=== PATIENT | female | born 1990 | race Caucasian/White ===

== ENCOUNTER 2016-12-22 18:02 | Emergency (ER) | payer BC, MEDICAID, OTHER ==
[2016-12-22 18:27] VITALS: BP 133/93
--- NOTE | 2016-12-22 18:46 | UC ---
Dental HPI - HPI Summary HPI Summary: The patient comes in today for: 1. Bottom right molar and the top right molar. Onset: 5 days ago. Palliative/provocative: She has not tried chewing food. She avoids cold liquids. Quality: Ache Region/radiation: Right upper and lower back tooth pain. Severity: 9/10 Time: Constant. Associated symptoms: Fever: None. Dentist: She does not have one. Her last dental visit 2-3 years ago. * - History of Current Complaint Chief Complaint: UCDentalProblem Stated Complaint: DENTAL PAIN Time Seen by Provider: 12/22/16 18:19 Hx Obtained From: Patient Hx Last Menstrual Period: Currently menstruating ?: No - Allergies/Home Medications Allergies/Adverse Reactions: Allergies Allergy/AdvReac Type Severity Reaction Status Date / Time No Known Allergies Allergy Verified 12/30/14 17:14 Home Medications: Home Medications Control Patch 12/22/16 [History] PMH/Surg Hx/FS Hx/Imm Hx Previously Healthy: No - Family planning/BCP Endocrine History Of: Denies: Diabetes, Thyroid Disease, Hyperthyroidism, Hypothyroidism, Dyslipidemia Cardiovascular History Of: Denies: Cardiac Disorders, Hypertension, Pacemaker/ICD, Myocardial Infarction , Congestive Heart Failure, Atrial Fibrillation, Deep Vein Thrombosis, Bleeding Disorders Respiratory History Of: Denies: COPD, Asthma, Bronchitis, Pneumonia, Pulmonary Embolism GI/ History Of: Denies: Gastroesophageal Reflux, Ulcer, Gastrointestinal Bleed, Gall Bladder Disease, Kidney Stones, Diverticulitis, Renal Disease, Urosepsis Neurological History Of: Denies: TIA, CVA, Dementia, Seizures, Migraine Psychological History Of: Denies: Anxiety, Depression, Bipolar Disorder, Schizophrenia, Post Traumatic Stress Disorder Cancer History Of: Denies: Lung Cancer, Colorectal Cancer, Breast Cancer, Prostate Cancer, Cervical Cancer Other History Of: Negative For: HIV, Hepatitis B, Hepatitis C, Anticoagulant Therapy - Surgical History Surgical History: None - Family History Known Family History: Negative: Cardiac Disease, Hypertension - Social History Occupation: Unemployed Alcohol Use: None Substance Use Type: None Smoking Status (MU): Light Every Day Tobacco Smoker Type: Cigarettes Amount Used/How Often: 3 cigs per day Have You Smoked in the Last Year: No - Immunization History Most Recent Influenza Vaccination: refused Most Recent Tetanus Shot: 06/01/15 Most Recent Pneumonia Vaccination: not indicated Review of Systems Constitutional: Negative Skin: Negative Eyes: Negative ENT: Negative Respiratory: Negative Cardiovascular: Negative Gastrointestinal: Negative Genitourinary: Negative All Other Systems Reviewed And Are Negative: Yes Physical Exam Triage Information Reviewed: Yes Appearance: Well-Appearing, Well-Nourished, Other: - At times she is crying, and at other times she is smiling and not tearful. Vital Signs: Initial Vital Signs Temp 96.9 F 12/22/16 18:18 Pulse 88 12/22/16 18:18 Resp 18 12/22/16 18:18 BP 133/93 12/22/16 18:18 Pulse Ox 99 12/22/16 18:18 Vital Signs Reviewed: Yes Eyes: Positive: Conjunctiva Clear. Negative: Discharge ENT: Positive: Hearing grossly normal. Negative: Pharyngeal erythema, Nasal congestion, Nasal drainage, TM bulging, TM dull, TM red, Tonsillar swelling, Tonsillar exudate Dental: Positive: Other: - No obvious dental fracture or cavity seen. She has tenderness of #3 and #30.. Negative: Gross Decay/Caries @, Dental Fracture @ Neck: Positive: Supple, Nontender, No Lymphadenopathy. Negative: Nuchal Rigidity Respiratory: Positive: Lungs clear, No respiratory distress, No accessory muscle use. Negative: Crackles, Wheezing Cardiovascular: Positive: RRR, No Murmur Abdomen Description: Positive: Nontender, No Organomegaly, Soft. Negative: Distended, Guarding Musculoskeletal: Positive: Strength Intact, ROM Intact, No Edema Neurological: Positive: Alert, Muscle Tone Normal Psychological: Positive: Age Appropriate Behavior, Consolable Skin: Negative: rashes, breakdown Dental Complaint Course/Dx - Differential Dx/Diagnosis Differential Diagnosis/Dx: Dental Abscess, Dental Caries Provider Diagnoses: Pulpitis #3 and #30. Discharge - Discharge Plan Condition: Stable Disposition: HOME Patient Education Materials: Dental Caries (ED), Dental Abscess (ED), Toothache (ED) Additional Instructions: Please see a dentist as soon as you can. If you get worse, please be re-seen by your primary care provider or us or the ER. Our treatment is only a temporary fix to your tooth infection. The definitive care is through a dentist.
[2016-12-22] MEDS ORDERED: Naproxen TAB* 250 MG PO ONE (18:53)
[2016-12-22] MEDS ORDERED: Penicillin VK TAB* 250 MG PO ONE (18:54)
== END 2016-12-22 19:08 | disposition home or self-care (01) ==
LOC: UCEAST 18:02
DX: K04.01 Reversible pulpitis (principal); F17.210 Nicotine dependence, cigarettes, uncomplicated
CPT/HCPCS: 99213; A9270-GY; G0463

== ENCOUNTER 2017-05-22 10:58 | Emergency (ER) | payer OTHER ==
[2017-05-22 11:53] VITALS: BP 113/75
--- NOTE | 2017-05-22 12:03 | UC ---
Complaint Female HPI - HPI Summary HPI Summary: Yesterday developed constant urgency, felt like thinks were "not right." Today lots of pain with urination and increasing frequency. Denies fever, vomiting, or flank pain. Is having low back pain.Had has UTIs in the past, none recently. - History Of Current Complaint Chief Complaint: UCGU Stated Complaint: POSS UTI Time Seen by Provider: 05/22/17 11:54 Hx Obtained From: Patient Hx Last Menstrual Period: 05/04/17 ?: No Onset/Duration: Gradual Onset, Lasting Hours Timing: Constant Severity Initially: Mild Severity Currently: Moderate Character: Burning Aggravating Factor(s): Urination Associated Signs And Symptoms: Negative: Vaginal Bleeding/Discharge, Vaginal Discharge, Nausea, Vomiting(# Of Episodes =) - Allergies/Home Medications Allergies/Adverse Reactions: Allergies Allergy/AdvReac Type Severity Reaction Status Date / Time No Known Allergies Allergy Verified 12/30/14 17:14 Home Medications: Home Medications Citalopram TAB* [CeleXA TAB*] 10 mg PO DAILY 05/22/17 [History Confirmed ] PMH/Surg Hx/FS Hx/Imm Hx Previously Healthy: Yes Other History Of: Negative For: HIV, Hepatitis B, Hepatitis C, Anticoagulant Therapy - Surgical History Surgical History: None - Family History Known Family History: Negative: Cardiac Disease, Hypertension - Social History Alcohol Use: None Substance Use Type: None Smoking Status (MU): Light Every Day Tobacco Smoker Type: Cigarettes Amount Used/How Often: 3 cigs per day Have You Smoked in the Last Year: No - Immunization History Most Recent Influenza Vaccination: refused Most Recent Tetanus Shot: 06/01/15 Most Recent Pneumonia Vaccination: not indicated Review of Systems Constitutional: Negative Skin: Negative Eyes: Negative ENT: Negative Respiratory: Negative Cardiovascular: Negative Gastrointestinal: Negative Genitourinary: Dysuria, Frequency, Urgency Motor: Negative Neurovascular: Negative Musculoskeletal: Negative Neurological: Negative Psychological: Negative All Other Systems Reviewed And Are Negative: Yes Physical Exam Triage Information Reviewed: Yes Appearance: Well-Appearing, No Pain Distress, Well-Nourished Vital Signs: Initial Vital Signs Temp 98 F 05/22/17 11:50 Pulse 67 05/22/17 11:50 Resp 16 05/22/17 11:50 BP 113/75 05/22/17 11:50 Pulse Ox 99 05/22/17 11:50 Vital Signs Reviewed: Yes Eye Exam: Normal Eyes: Positive: Conjunctiva Clear ENT Exam: Normal ENT: Positive: Normal ENT inspection, Hearing grossly normal, Pharynx normal, TMs normal. Negative: Tonsillar swelling, Tonsillar exudate Dental Exam: Normal Neck exam: Normal Neck: Positive: Supple, Nontender, No Lymphadenopathy Respiratory Exam: Normal Respiratory: Positive: Chest non-tender, Lungs clear, Normal breath sounds, No respiratory distress, No accessory muscle use Cardiovascular Exam: Normal Cardiovascular: Positive: RRR, No Murmur Abdomen Description: Positive: Nontender. Negative: CVA Tenderness (R), CVA Tenderness (L) Musculoskeletal Exam: Normal Neurological Exam: Normal Psychological Exam: Normal Skin Exam: Normal Complaint Female Dx - Differential Dx/Diagnosis Provider Diagnoses: UTI Discharge - Discharge Plan Condition: Stable Disposition: HOME
== END 2017-05-22 12:12 | disposition home or self-care (01) ==
LOC: UCEAST 10:58
DX: N39.0 Urinary tract infection, site not specified (principal); F17.210 Nicotine dependence, cigarettes, uncomplicated
CPT/HCPCS: 81003; 87077; 87086; 87186; 99211; G0463

== ENCOUNTER 2018-10-08 17:43 | Inpatient (IN) | payer OTHER ==
[2018-10-08] MEDS ORDERED: fentaNYL* 50 MCG/ML 2 ML VIAL (100 MCG VIAL) ONE (18:19)
[2018-10-08] MEDS ORDERED: OBEPIDURAL* 0 ML EPIDURAL ONE (18:21)
[2018-10-08] MEDS ORDERED: Phenylephrine IV* 40 MCG/ML 10 ML SYRINGE IV PUSH PRN ×2 (18:24)
[2018-10-08] MEDS ORDERED: Sodium Citrate/Citric Acid* 15 ML UDC PO PRN (18:24)
[2018-10-08] MEDS ORDERED: Famotidine TAB* 20 MG PO PRN (18:24)
--- NOTE | 2018-10-08 18:24 | HP ---
General Information - Reason for Visit labor, contractions every 3-5 min - General Information Maternal Age: 28 Grav: 3 Para: 2 SAB: 0 IEA: 0 Estimated Due Date: 10/26/18 Determined By: Early Ultrasound Maternal Blood Type and Rh: A Positive - Results this Serology/RPR Result: Non-Reactive Rubella Result: Immune HBsAg Result: Negative HIV Result: Negative GBS Culture Result: Negative Exam Allergies/Adverse Reactions: Allergies No Known Allergies Allergy (Verified 10/06/18 19:01) - Measurements Pre- Weight: 130 lb
--- NOTE | 2018-10-08 18:33 | HP ---
General Information - Reason for Visit labor, contractions every 3-5 minutes - General Information Maternal Age: 28 Grav: 3 Para: 2 SAB: 0 IEA: 0 Estimated Due Date: 10/26/18 Determined By: Early Ultrasound Gestational Age in Weeks/Days: 37 w 3 d Maternal Blood Type and Rh: A Positive - Results this Serology/RPR Result: Non-Reactive Rubella Result: Immune HBsAg Result: Negative HIV Result: Negative GBS Culture Result: Negative Past Medical History Delivery History: Hx Uncomplicated Vaginal Delivery Past Medical History Comment: hx opioid abuse, currently on Subutex Depression/anxiety--stopped Celexa 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 Past Surgical History Comment: age 10--reset fx L wrist - Antepartal Records Antepartal Records: Reviewed, Complicated by: - subutex use, cigarette smoker Review of Systems Constitutional: Uncomfortable CV Complaint: No Respiratory: Shortness of Breath: No Gastrointestinal: No Nausea/Vomiting, Soft Stool Genitourinary: No Leaking Fluid Musculoskeletal: Contractions Neurological: Headache Movement: Normal Exam Allergies/Adverse Reactions: Allergies No Known Allergies Allergy (Verified 10/06/18 19:01) - Measurements Height: 5 ft 2 in Weight: 158 lb Body Mass Index (BMI): 28.9 Pre- Weight: 130 lb - Exam Breast: - - soft, no masses Extremities: No Edema Heart: Normal Rhythm/Heart Sounds HEENT: No Significant Findings Lungs: Clear Bilaterally Reflexes: - - not done Thyroid: No Thyromegaly Targeted Exam Findings Estimated Weight: 6 lbs Cervical Exam: 7cm Effacement: 100% Station: -1 Presenting Part: Vertex Membrane Status: Intact EFM Findings - External Monitor Findings Baseline Heart Rate: 145 External Monitor Findings: No Pattern of Variable or Late Decelerations, Variability Moderate, Baseline Stable Contractions: Strong, 45-90 Seconds Contraction Frequency: every 3 min Assessment/Plan - Assessment at 37 wk 3 days in active labor Wants epidural - Obstetrical Risk Factors Obstetrical Risk Factors: Substance Abuse, Tobacco Use, Psychosocial Issues - Plan Plan: Admit - Anticipate Vaginal Delivery - Date/Time of Admission Date of Admission: 10/08/18 Time of Admission: 18:05
[2018-10-08 18:35] LABS: ABS Basophils 0.1 10^3/ul (0-0.2); ABS Eosinophils 0 10^3/ul (0-0.6); ABS Lymphocytes 1.7 10^3/ul (1.0-4.8); ABS Monocytes 0.7 10^3/ul (0-0.8); ABS Neutrophils 8.4 10^3/ul (1.5-7.7); ABS Nucleated RBC 0 10^3/ul; Eosinophil % 0.4 %; Hematocrit 34 % (35-47); Hemoglobin 11.5 g/dl (12.0-16.0); Lymphocyte % 15.8 %; Mean Corpuscular HGB Conc 34 g/dl (31-36); Mean Corpuscular Hemoglobin 32 pg (27-31); Mean Corpuscular Volume 93 fL (80-97); Mean Platelet Volume 10.1 fL (7.4-10.4); Nucleated Red Blood Cells % 0; Platelet Count 134 10^3/ul (150-450); Red Blood Count 3.66 10^6/ul (4.00-5.40); Red Cell Distribution Width 13 % (10.5-15)
[2018-10-08] MEDS ORDERED: Ropivacaine 0.2% EPIDURAL* 200 MG/100 ML BAG EPIDURAL SCH (19:00)
[2018-10-08] MEDS ORDERED: Oxytocin in LR* 20 UNITS/1,000 ML BAG IVPB ONE (19:58)
[2018-10-08] MEDS ORDERED: Acetaminophen TAB* 325 MG PO PRN (20:16)
[2018-10-08] MEDS ORDERED: Glycerin ADULT SUPP PR PRN (20:16)
[2018-10-08] MEDS ORDERED: Witch Hazel PAD* JAR TOPICAL PRN (20:16)
[2018-10-08] MEDS ORDERED: Dibucaine 1% 28.35 GM TUBE PR PRN (20:16)
--- NOTE | 2018-10-08 20:33 | PROCNOTE ---
[facility] OB: Delivery Note - Delivery A Date of : 10/08/18 Time of : 19:54 Caroline Sex: Female Score 1 Minute: 9 Score 5 Minutes: 9 Gestational Age in Weeks and Days at Delivery: 37 Weeks and 3 Days Delivery Method: Spontaneous Vaginal Labor: Spontaneous Did Patient attempt ?: N/A, No Previous Amniotic Fluid: Clear Estimated Blood Loss: 100 Anesthesia/Analgesia: CEI for Labor Anesthesia Comment: Dr. Bedoya Delivered By: Liana Dasilva - Nursery Level of Nursery: Regular/Bedside - Perineum Perineal Injury: None/Intact Perineal Repair: None - Additional Delivery Notes Additional Delivery Notes: SVB LFC, OA, over intact perineum after 14 min second stage. pink with stimulation, suctioning. Placenta Yin. Fundus firm. IV with pitocin running. EBL 100cc. Total LOL 5'0"
[2018-10-08] MEDS ORDERED: Ibuprofen TAB* 600 MG ONE (20:47)
[2018-10-08] MEDS ORDERED: Oxytocin in LR* 20 UNITS/1,000 ML BAG IVPB SCH (21:00)
[2018-10-08] MEDS: Ibuprofen TAB* 600 MG PO PRN (21:53)
[2018-10-08] MEDS: Docusate CAP* 100 MG PO SCH (21:59)
[2018-10-08] MEDS: Buprenorphine TAB* 8 MG PO SCH (21:59)
[2018-10-09] MEDS: Ibuprofen TAB* 600 MG PO PRN ×3 (06:31→20:39)
[2018-10-09 06:35] LABS: ABS Basophils 0 10^3/ul (0-0.2); ABS Eosinophils 0.1 10^3/ul (0-0.6); ABS Monocytes 0.7 10^3/ul (0-0.8); ABS Neutrophils 8.5 10^3/ul (1.5-7.7); ABS Nucleated RBC 0 10^3/ul; Eosinophil % 0.6 %; Hematocrit 31 % (35-47); Hemoglobin 10.5 g/dl (12.0-16.0); Lymphocyte % 17.4 %; Mean Corpuscular HGB Conc 33 g/dl (31-36); Mean Corpuscular Hemoglobin 31 pg (27-31); Mean Corpuscular Volume 93 fL (80-97); Mean Platelet Volume 9.6 fL (7.4-10.4); Nucleated Red Blood Cells % 0; Platelet Count 120 10^3/ul (150-450); Red Blood Count 3.36 10^6/ul (4.00-5.40); Red Cell Distribution Width 13 % (10.5-15); White Blood Count 11.3 10^3/ul (3.5-10.8)
[2018-10-09] MEDS ORDERED: Ferrous Gluconate TAB* 324 MG TAB PO SCH (09:00)
[2018-10-09] MEDS: Docusate CAP* 100 MG PO SCH ×3 (09:07→20:36)
[2018-10-09] MEDS: Buprenorphine TAB* 8 MG PO SCH ×3 (09:07→20:36)
[2018-10-10] MEDS: Ibuprofen TAB* 600 MG PO PRN ×3 (03:56→16:04)
[2018-10-10 08:09] VITALS: BP 122/77
[2018-10-10] MEDS: Docusate CAP* 100 MG PO SCH ×2 (08:31→14:21)
[2018-10-10] MEDS: Buprenorphine TAB* 8 MG PO SCH ×2 (10:01→15:40)
== END 2018-10-10 18:05 | disposition home or self-care (01) | DRG 560 ==
LOC: MCHOBOUT 17:43 → MCHOB 18:00
PROVIDERS: ADMIT Midwife; ATTEND Midwife
PROC: 10E0XZZ Delivery of Products of Conception, External Approach (ICD-10-PCS; principal; 2018-10-08)
PROC: 10907ZC Drainage of Amniotic Fluid, Therapeutic from Products of Conception, Via Natural or Artificial Opening (ICD-10-PCS; 2018-10-08)
PROC: 4A1HXCZ Monitoring of Products of Conception, Cardiac Rate, External Approach (ICD-10-PCS; 2018-10-08)
DX: O99.334 Smoking (tobacco) complicating childbirth (principal); Z37.0 Single live birth; F17.210 Nicotine dependence, cigarettes, uncomplicated; O99.324 Drug use complicating childbirth; F11.10 Opioid abuse, uncomplicated; Z3A.37 37 weeks gestation of pregnancy
CPT/HCPCS: 36415; 85025; 86850; 86900; 86901; A9270-GY; J2795; J3010

== ENCOUNTER → 2018-12-17 05:32 | Day surgery (SDC) | payer OTHER ==
[~2018-12-17 05:32] MED LIST: Acetaminophen TAB* 325 MG ONE; Acetaminophen TAB* 325 MG PO PRN; Buffered Lidocaine 1% SYRIN* 1 ML/SYRINGE INTRADERM ONE; Dexamethasone IV* 4 MG/ML 1 ML (4 MG) ONE; DiMENhydriNATE IV* 50 MG/ML VIAL IV PUSH PRN; HYDROmorphone INJ1* 1 MG/ML SYRINGE IV PRN; Ketorolac INJ* 30 MG/ML 1 ML VIAL ONE; Lactated Ringers 1000 ML Bag* 1,000 ML IV SCH; Lidocaine 2% PF * 5 ML VIAL ONE; Metoclopramide IV* 5 MG/ML 2 ML VIAL ONE; Midazolam* 1 MG/ML 2 ML VIAL (2 MG) ONE; Naloxone* 0.4 MG/ML 1 ML VIAL IV PRN; Ondansetron INJ* 2 MG/ML VIAL ONE; Propofol* 10 MG/ML 20 ML BTL ONE; Rocuronium* 10 MG/ML VIAL ONE; Succinylcholine* 20 MG/ML 10 ML VIAL ONE; Sugammadex * 200 MG/2 ML VIAL IV PUSH ONE; fentaNYL* 50 MCG/ML 5 ML VIAL (250 MCG VIAL) ONE; oxyCODONE TAB* 5 MG TAB PO PRN
--- NOTE | 2018-12-17 09:13 | OP ---
DATE OF OPERATION: 12/17/18 - [facility] DATE OF : 89 SURGEON: Dr. Garcia. ANESTHESIA: General endotracheal tube. PRE-OP DIAGNOSIS: Desires permanent sterilization. POST-OP DIAGNOSIS: Desires permanent sterilization. OPERATIVE PROCEDURE: Laparoscopic bilateral tubal ligation. ESTIMATED BLOOD LOSS: Minimal. SPECIMEN: None. FINDINGS: On laparoscopy, anterior bladder flap appeared normal. Both tubes, ovaries, and uterus all appeared normal. The liver surface was smooth. DESCRIPTION OF PROCEDURE: The patient was identified, procedure identified as a laparoscopic bilateral tubal ligation. The patient was taken to the operating room, prepped and draped in the usual fashion in the dorsal lithotomy position under general anesthesia. A small infraumbilical incision was made and a Veress needle was inserted through this. The abdomen was insufflated to 15 mmHg. The Veress needle was removed and the trocar was inserted. Trocar was removed and the sheath and laparoscope were inserted. The above findings were noted. The second trocar was inserted 2 cm above the pubic symphysis in the midline under direct visualization. Kleppinger bipolar cautery was inserted and the right fallopian tube was grasped in the midportion, followed to its fimbriated ends, and fulgurated x4. The same procedure was carried out on the left after following it out to its fimbriated ends. Good hemostasis was verified. All instruments removed from the abdomen. The abdomen was deflated of CO2. Sponge and sponge stick were removed from the vagina and the skin was closed with skin glue. [id number]/[facility] #: [id number] E.J. NOBLE HOSPITALBrenda
[2018-12-17 09:41] VITALS: BP 106/62
== END | disposition home or self-care (01) ==
LOC: OR 05:32
PROVIDERS: ATTEND Obstetrics & Gynecology
DX: Z30.2 Encounter for sterilization (principal); R01.1 Cardiac murmur, unspecified; Z72.0 Tobacco use; F41.8 Other specified anxiety disorders
CPT/HCPCS: 81025; A9270-GY; J0330; J1100; J1885; J2250; J2405; J2704; J2765; J3010

== ENCOUNTER 2019-01-29 18:43 | Emergency (ER) | payer OTHER ==
[2019-01-29 19:14] VITALS: BP 123/77
--- NOTE | 2019-01-29 19:50 | UC ---
Abdominal Pain Female HPI - HPI Summary HPI Summary: Patient presents to urgent care reporting 34 hours of urinary frequency, odor, and dysuria. Patient denies vaginal discharge. Patient denies fevers or chills. No back pain. Mild lower abdominal pain. no bacl pain. no nausea.. Patient is 3 months . Patient has not gotten her first menses but does have a tubal ligation. Patient denies any vaginal itching, odor, discharge. Patient took Pyridium that she had from a previous UTI that helped. Patient is no longer breast-feeding and she stopped approximately 3 weeks ago. Patient's medications reviewed this visit. - History of Current Complaint Chief Complaint: UCGU Stated Complaint: ABDOMINAL PAIN, AND FREQUENT URINATION Time Seen by Provider: 01/29/19 19:18 Hx Obtained From: Patient Hx Last Menstrual Period: before baby; tubes tied Pain Intensity: 5 Allergies/Adverse Reactions: Allergies Allergy/AdvReac Type Severity Reaction Status Date / Time No Known Allergies Allergy Verified 12/07/18 14:06 PMH/Surg Hx/FS Hx/Imm Hx Previously Healthy: Yes Psychological History: Other - substance use disorder Other History Of: Negative For: HIV, Hepatitis B, Hepatitis C, Anticoagulant Therapy - Surgical History Surgical History: Yes Surgery Procedure, Year, and Place: left wrist reset. tubes tied 2017 - Family History Known Family History: Positive: Non-Contributory Negative: Cardiac Disease, Hypertension - Social History Occupation: Unemployed Lives: With Family Alcohol Use: None Substance Use Type: None Smoking Status (MU): Light Every Day Tobacco Smoker Type: Cigarettes Amount Used/How Often: 1/2pack per day Have You Smoked in the Last Year: No Household Exposure Type: Cigarettes - Immunization History Most Recent Influenza Vaccination: unknown Most Recent Tetanus Shot: 06/01/15 Most Recent Pneumonia Vaccination: not indicated Review of Systems All Other Systems Reviewed And Are Negative: Yes Constitutional: Positive: Negative Genitourinary: Positive: Dysuria, Frequency, Urgency. Negative: Vaginal/Penile Burning, Vaginal/Penile Itching, Vaginal/Penile Discharge Is Patient Immunocompromised?: No Physical Exam - Summary Physical Exam Summary: Vital Signs Reviewed: Yes A+Ox3, no distress Eyes: Conjunctiva Clear, BRENT. EOM intact and full ENT: Hearing grossly normal TM x 2 clear, mmoist, uvula midline, no exudate, no erythema Neck: Positive: Supple Respiratory: Positive: No respiratory distress, No accessory muscle use + CTA throughout no w/r Cardiovascular: RRR nl s1, s2 no m/r CBT <2 sec abd soft + BS nd, mild suprapubic discomfort no guarding, no distension, no CVA Musculoskeletal Exam: HERNANDEZ x 4 without difficulty Strength Intact, ROM Intact Neurological: Positive: Alert, + sensation throughout Psychological: Positive: Normal Response To Family Skin: Positive: no rash, no ecchymosis Triage Information Reviewed: Yes Vital Signs: Initial Vital Signs Temp 97.8 F 01/29/19 19:07 Pulse 74 01/29/19 19:07 Resp 16 01/29/19 19:07 BP 123/77 01/29/19 19:07 Pulse Ox 99 01/29/19 19:07 Abd Pain Female Course/Dx - Course Course Of Treatment: Patient presents to urgent care with 24 hours of urinary frequency, urgency, and odor. Patient with a history of UTI and states feels similar. Patient states she is concerned she has a UTI. Patient has taken Pyridium. Patient will take any other analgesia. No fevers or chills. No vaginal discharge or itching. Patient's urine is pain positive but she took Pyridium. We'll culture. We'll start on cephalexin and Pyridium. Hydrate. Strict return precautions. Patient comfortable in agreement - Differential Dx/Diagnosis Provider Diagnosis: UTI (urinary tract infection) Discharge - Sign-Out/Discharge Documenting (check all that apply): Patient Departure All imaging exams completed and their final reports reviewed: No Studies - Discharge Plan Condition: Stable Disposition: HOME Prescriptions: Cephalexin CAP* [Keflex 500 CAP*] 500 mg PO BID #14 cap Phenazopyridine TAB* [Pyridium 100 mg TAB*] 100 mg PO TID PRN #9 tab PRN Reason: burning with urination Patient Education Materials: Urinary Tract Infection in Women (ED) Referrals: Aicha Macias NP [Primary Care Provider] - Additional Instructions: - stay well hydrated - drink plenty of non-alcoholic, non caffinated beverages - your urine will be further tested - if you require any changes to your treatment, we will contact you - this usually take 2 days - Contact your primary doctor to arrange a follow-up appointment next week. Contact your doctor or return with questions or concerns - Take your antibiotics exactly as prescribed until gone - Take pyridium as prescribed for discomfort. This will make your urine blaze orange - this is normal - Okay to take Tylenol every 6 hours for pain. Take with food - Call your doctor or return with questions or concerns - Billing Disposition and Condition Condition: STABLE Disposition: Home
== END 2019-01-29 19:53 | disposition home or self-care (01) ==
LOC: UCEAST 18:43
DX: N39.0 Urinary tract infection, site not specified (principal); F17.210 Nicotine dependence, cigarettes, uncomplicated
CPT/HCPCS: 81003; 84702; 87077; 87086; 87186; 99212; G0463

== ENCOUNTER 2019-08-11 10:10 | Emergency (ER) | payer OTHER ==
--- NOTE | 2019-08-11 10:32 | ED ---
Abdominal Pain/Female - HPI Summary HPI Summary: This patient is a 29 year old F presenting to [facility] accompanied by her with a chief complaint of lower ABD pain since this morning as soon as she woke up. She never had this pain before. The patient rates the pain 9/10 in severity. Symptoms aggravated by movement. Symptoms alleviated by nothing. Patient reports constipation. Patient denies nausea, vomiting, diarrhea. Her last menstrual cycle was last month. Pt does not have any medical history or past surgeries. Pt does not smoke, drink alcohol, or use recreational drugs. - History of Current Complaint Chief Complaint: EDAbdPain Stated Complaint: NAUSEA PER PT Time Seen by Provider: 08/11/19 10:21 Hx Obtained From: Patient Hx Last Menstrual Period: before baby; tubes tied Onset/Duration: Sudden Onset, Lasting Hours - since this morning, Still Present Timing: Hours - since this morning Severity Initially: Severe Severity Currently: Severe Pain Intensity: 9 Pain Scale Used: 0-10 Numeric Location: Other - lower Aggravating Factor(s): Movement Alleviating Factor(s): Nothing Associated Signs and Symptoms: Positive: Constipation, Other: - positive - ABD pain. Negative: Nausea, Vomiting, Diarrhea Allergies/Adverse Reactions: Allergies Allergy/AdvReac Type Severity Reaction Status Date / Time No Known Allergies Allergy Verified 12/07/18 14:06 Home Medications: Home Medications Buprenorp/Nalox 8-2 MG FILM [Suboxone 8 mg-2 mg Sl Film] 1 each SL TID 08/11/19 [History Confirmed 08/11/19] PMH/Surg Hx/FS Hx/Imm Hx Previously Healthy: No Endocrine/Hematology History: Denies: Hx Anticoagulant Therapy, Hx Diabetes, Hx Thyroid Disease Cardiovascular History: Denies: Hx Congestive Heart Failure, Hx Deep Vein Thrombosis, Hx Hypertension , Hx Myocardial Infarction, Hx Pacemaker/ICD Respiratory History: Denies: Hx Asthma, Hx Chronic Obstructive Pulmonary Disease (COPD), Hx Lung Cancer, Hx Pneumonia, Hx Pulmonary Embolism GI History: Denies: Hx Gall Bladder Disease, Hx Gastrointestinal Bleed, Hx Ulcer, Hx Urosepsis History: Denies: Hx Kidney Stones, Hx Renal Disease Sensory History: Denies: Hx Contacts or Glasses, Hx Hearing Aid Opthamlomology History: Denies: Hx Contacts or Glasses Neurological History: Denies: Hx Dementia, Hx Migraine, Hx Seizures, Hx Transient Ischemic Attacks (TIA) Psychiatric History: Reports: Hx Anxiety, Hx Depression Denies: Hx Schizophrenia, Hx Bipolar Disorder - Cancer History Hx Chemotherapy: No - Surgical History Surgical History: Yes Surgery Procedure, Year, and Place: left wrist reset. tubes tied 2018 Hx Anesthesia Reactions: No Infectious Disease History: No Infectious Disease History: Denies: Hx Clostridium Difficile, Hx Hepatitis, Hx Human Immunodeficiency Virus (HIV), Hx of Known/Suspected MRSA, Hx Shingles, Hx Tuberculosis, Hx Known/ Suspected VRE, Hx Known/Suspected VRSA, History Other Infectious Disease, Traveled Outside the [place] in Last 30 Days - Family History Known Family History: Positive: Non-Contributory Negative: Cardiac Disease, Hypertension - Social History Alcohol Use: None Substance Use Type: Reports: None Smoking Status (MU): Light Every Day Tobacco Smoker Type: Cigarettes Amount Used/How Often: 1/2pack per day Have You Smoked in the Last Year: No Review of Systems Positive: Abdominal Pain - lower. Negative: Vomiting, Diarrhea, Nausea Genitourinary: Other - positive - constipation All Other Systems Reviewed And Are Negative: Yes Physical Exam - Summary Physical Exam Summary: VITAL SIGNS: Reviewed. GENERAL: Patient is a well-developed and nourished female who is lying comfortable in the stretcher. Patient is not in any acute respiratory distress. HEAD AND FACE: No signs of trauma. No ecchymosis, hematomas or skull depressions. No sinus tenderness. EYES: PERRLA, EOMI x 2, No injected conjunctiva, no nystagmus. EARS: Hearing grossly intact. Ear canals and tympanic membranes are within normal limits. MOUTH: Oropharynx within normal limits. NECK: Supple, trachea is midline, no adenopathy, no JVD, no carotid bruit, no c- spine tenderness, neck with full ROM. CHEST: Symmetric, no tenderness at palpation. LUNGS: Clear to auscultation bilaterally. No wheezing or crackles. CVS: Regular rate and rhythm, S1 and S2 present, no murmurs or gallops appreciated. ABDOMEN: Soft, diffuse ABD tenderness that is increased in the lower ABD. No signs of distention. No rebound, no guarding, and no masses palpated. Bowel sounds are normal. EXTREMITIES: FROM in all major joints, no edema, no cyanosis or clubbing. NEURO: Alert and oriented x 3. No acute neurological deficits. Speech is normal and follows commands. SKIN: Dry and warm. Triage Information Reviewed: Yes Vital Signs On Initial Exam: Initial Vitals Temp Pulse Resp BP Pulse Ox 96.7 F 65 18 105/59 100 08/11/19 10:11 08/11/19 10:11 08/11/19 10:11 08/11/19 10:11 08/11/19 10:11 Vital Signs Reviewed: Yes Procedures - Sedation Patient Received Moderate/Deep Sedation with Procedure: No Diagnostics - Vital Signs Vital Signs Temp Pulse Resp BP Pulse Ox 08/11/19 10:11 96.7 F 65 18 105/59 100 - Laboratory Result Diagrams: 08/11/19 11:22 08/11/19 10:55 Lab Statement: Any lab studies that have been ordered have been reviewed, and results considered in the medical decision making process. - CT ABD/PEL CT CT Interpretation Completed By: Radiologist Summary of CT Findings: IMPRESSION: SMALL AMOUNT OF FLUID WITHIN THE PELVIC CUL -DE-SAC. THIS IS INTERMEDIATE ATTENUATION WHICH. MAY INDICATE COMPLEX FLUID INCLUDING BLOOD VERSUS PROTEINACEOUS FLUID IN THE PELVIC. CUL-DE-SAC. THIS REPORT WAS REVIEWED BY DR. NAVA. - EKG 1046 Cardiac Rate: NL - 62 BPM EKG Rhythm: Sinus Rhythm Summary of EKG Findings: EKG at 1046 shows sinus rhythm, 62 BPM, no ST elevations, normal axis Re-Evaluation - Re-Evaluation First Eval Re-Evaluation Time: 15:05 Comment: Patient now states that she has been additionally experiencing dysuria and increased frequency of urination. US and pelvic exam were offered, but the patient declines. Second Eval Re-Evaluation Time: 15:37 Comment: I discussed all the findings and test results with the patient. Patient was instructed to return to the emergency room immediately if any of the symptoms return worsens. Plan of care was discussed with the patient and understands and agrees. All questions were answered at patient satisfaction. There were no further complaints or concerns. Lung exam before discharge: CTA B/ L. Good air exchange. No wheezing or crackles heard. CVS: S1 and S2 present. No murmurs appreciated. Patient is alert and oriented x 3. Patient is hemodynamically stable. Patient will be discharged home with follow up PCP in the next 2-3 days Abdominal Pain Fem Course/Dx - Course Course Of Treatment: This patient is a 29-year-old female who presents to the emergency department with a chief complaint of abdominal pain. Patient reports pain is diffuse but increase in the left lower quadrant. EKG shows sinus rhythm [address] elevations. Blood work without any significant abnormality except for carbon dioxide of 19, total protein 6.3. Beta hCG is negative. Abdominal and pelvic CT IMPRESSION: SMALL AMOUNT OF FLUID WITHIN THE PELVIC CUL -DE-SAC. THIS IS INTERMEDIATE ATTENUATION WHICH MAY INDICATE COMPLEX FLUID INCLUDING BLOOD VERSUS PROTEINACEOUS FLUID IN THE PELVIC. CUL-DE-SAC. In the ED course the patient was given IV fluids and order morphine for pain. I offered the patient pelvic exam or a pelvic ultrasound however the patient declined. The patient reports that she has dysuria and urinary frequency. The urinalysis shows positive leukocytes likely the patient has a UTI due to the symptoms. The patient will be given nitrofurantoin for UTI. However we will send urine for cultures. I discussed all the findings and test results with the patient. Patient was instructed to return to the emergency room immediately if any of the symptoms return worsens. Plan of care was discussed with the patient and understands and agrees. All questions were answered at patient satisfaction. There were no further complaints or concerns. Lung exam before discharge: CTA B/L. Good air exchange. No wheezing or crackles heard. CVS: S1 and S2 present. No murmurs appreciated. Patient is alert and oriented x 3. Patient is hemodynamically stable. Patient will be discharged home with follow up PCP in the next 2-3 days - Diagnoses Provider Diagnoses: Lower abdominal pain, UTI (urinary tract infection) Discharge ED - Sign-Out/Discharge Documenting (check all that apply): Patient Departure - discharge - Discharge Plan Condition: Stable Disposition: HOME Prescriptions: Nitrofurantoin Macrocrystals* [Macrodantin 100 mg*] 100 mg PO BID #20 cap Patient Education Materials: Urinary Tract Infection in Women (ED), Abdominal Pain (ED) Referrals: Aicha Macias NP [Primary Care Provider] - 3 Days Additional Instructions: PLEASE RETURN TO ED FOR ANY NEW OR WORSENING SYMPTOMS. PLEASE FOLLOW UP WITH YOUR PRIMARY CARE PHYSICIAN WITHIN THREE DAYS. - Billing Disposition and Condition Condition: STABLE Disposition: Home - Attestation Statements Document Initiated by Scribe: Yes Documenting Scribe: Janusz Hdz and Jimi Ramirez Provider For Whom Scribe is Documenting (Include Credential): MD Dennise Aldanae Attestation: I, Janusz Hdz and Jimi Ramirez, scribed for Dr. Jonnie Nava MD on 08/13/19 at 0915. Scribe Documentation Reviewed: Yes Provider Attestation: The documentation as recorded by the scribe, Janusz Hdz and Jimi Ramirez accurately reflects the service I personally performed and the decisions made by me, Dr. Jonnie Nava MD Status of Scribe Document: Viewed
[2019-08-11 11:33] LABS: Albumin 4.2 g/dL (3.2-5.2); Anion Gap 8 mmol/L (2-11); CO2 Carbon Dioxide 19 mmol/L (22-32); Calcium 9.1 mg/dL (8.6-10.3); Chloride 109 mmol/L (101-111); Potassium 3.8 mmol/L (3.5-5.0); Sodium 136 mmol/L (135-145)
[2019-08-11 11:40] LABS: ALT 10 U/L (7-52); AST 17 U/L (13-39); Alkaline Phosphatase 49 U/L (34-104); BUN/Creatinine Ratio 14.7 (8-20); Blood Urea Nitrogen 10 mg/dL (6-24); C Reactive Protein < 1.00 mg/L (<8.01); EGFR African American 123.8 (>60); EGFR Non-African American 102.3 (>60); Globulin 2.1 g/dL (2-4); Glucose 97 mg/dL (70-100); Total Protein 6.3 g/dL (6.4-8.9)
[2019-08-11] MEDS: Ondansetron INJ* 2 MG/ML VIAL IV ONE (11:41)
[2019-08-11 11:44] LABS: HCG Pregnancy < 0.60 mIU/mL
[2019-08-11 11:51] LABS: ABS Eosinophils 0.1 10^3/ul (0-0.6); ABS Lymphocytes 0.9 10^3/ul (1.0-4.8); ABS Monocytes 0.3 10^3/ul (0-0.8); ABS Neutrophils 7.5 10^3/ul (1.5-7.7); Eosinophil % 0.6 %; Hematocrit 40 % (35-47); Hemoglobin 13.2 g/dL (12.0-16.0); Mean Corpuscular HGB Conc 33 g/dL (31-36); Mean Corpuscular Hemoglobin 30 pg (27-31); Mean Corpuscular Volume 91 fL (80-97); Mean Platelet Volume 8.8 fL (7.4-10.4); Nucleated Red Blood Cells % 0.1; Platelet Count 201 10^3/uL (150-450); Red Blood Count 4.37 10^6 /uL (3.70-4.87); Red Cell Distribution Width 13 % (10-15); White Blood Count 8.7 10^3/uL (3.5-10.8)
[2019-08-11] MEDS: Iohexol 300* (CONTRAST) 10 ML SDV IV ONE (14:19)
[2019-08-11 15:18] LABS: Urine Appearance Cloudy; Urine Bacteria 1+ (Absent); Urine Bilirubin Negative (Negative); Urine Blood 3+ (Negative); Urine Color Yellow; Urine Glucose Negative (Negative); Urine Ketones Negative (Negative); Urine Nitrite Negative (Negative); Urine Protein Negative (Negative); Urine Red Blood Cell 3+(>10/hpf) (Absent); Urine Specific Gravity 1.017 (1.010-1.030); Urine Squamous Epithelial Cell Present (Absent); Urine Urobilinogen Negative (Negative); Urine White Blood Cell 2+(11-20/hpf) (Absent)
[2019-08-11] MEDS: Nitrofurantoin Macrocrystals* 100 MG CAP PO ONE (15:42)
[2019-08-11] MEDS: Morphine 4 MG/ML VIAL (1 ml) 4 MG/ML VIAL IV ONE (15:43)
[2019-08-11 15:51] VITALS: BP 112/80
[2019-08-11 16:32] LABS: Urine Benzodiazepine Screen None Detected (None Detect); Urine Opiates Screen None Detected (None Detect)
--- NOTE | 2019-08-14 06:02 | ED ---
Imaging and Labs Follow Up Follow Up Type: Labs/Cultures Labs/Culture Result: Klebsiella PNA Urine Patient Communication/Plan: patient already placed on macrobid - sensitive to organism Provider Diagnoses: Lower abdominal pain, UTI (urinary tract infection)
== END 2019-08-11 15:40 | disposition home or self-care (01) ==
LOC: ED 10:10
DX: N39.0 Urinary tract infection, site not specified (principal); F17.210 Nicotine dependence, cigarettes, uncomplicated; F11.90 Opioid use, unspecified, uncomplicated
CPT/HCPCS: 36415; 74177; 80053; 80307; 81003; 81015; 82140; 83605; 83690; 83880; 84702; 85025; 86140; 87077; 87086; 87186; 93005; 96374; 96375; 99283; A9270-GY; J2405; Q9967

== ENCOUNTER 2019-09-18 11:03 | Emergency (ER) | payer OTHER ==
[2019-09-18 12:14] VITALS: BP 115/90
--- NOTE | 2019-09-18 12:51 | UC ---
Complaint Female HPI - HPI Summary HPI Summary: started having urinary frequency over past 48 hours, also started menses, no burning urination but has had UTIs in past - History Of Current Complaint Chief Complaint: UCGU Stated Complaint: URINARY ISSUE Time Seen by Provider: 09/18/19 12:04 Hx Obtained From: Patient Hx Last Menstrual Period: 09/17/19 ?: No Onset/Duration: Sudden Onset Timing: Intermittent Severity Initially: Mild Severity Currently: Mild Pain Intensity: 2 Character: Dull Aggravating Factor(s): Urination Associated Signs And Symptoms: Positive: Negative. Negative: Fever, Back Pain - Allergies/Home Medications Allergies/Adverse Reactions: Allergies Allergy/AdvReac Type Severity Reaction Status Date / Time No Known Allergies Allergy Verified 12/07/18 14:06 PMH/Surg Hx/FS Hx/Imm Hx Previously Healthy: Yes Other History Of: Negative For: HIV, Hepatitis B, Hepatitis C, Anticoagulant Therapy - Surgical History Surgical History: Yes Surgery Procedure, Year, and Place: left wrist reset. 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 Negative: Fever, Chills Respiratory: Positive: Negative Cardiovascular: Positive: Negative Gastrointestinal: Positive: Negative. Negative: Abdominal Pain, Vomiting, Diarrhea, Nausea Genitourinary: Positive: Urgency. Negative: Dysuria Neurological: Positive: Negative Psychological: Positive: Negative Is Patient Immunocompromised?: No Physical Exam Triage Information Reviewed: Yes Appearance: Well-Appearing, No Pain Distress, Well-Nourished Vital Signs: Initial Vital Signs Temp 98.5 F 09/18/19 12:11 Pulse 90 09/18/19 12:11 Resp 17 09/18/19 12:11 BP 115/90 09/18/19 12:11 Pulse Ox 100 09/18/19 12:11 Vital Signs Reviewed: Yes Respiratory Exam: Normal Respiratory: Positive: Lungs clear Cardiovascular Exam: Normal Cardiovascular: Positive: RRR Abdominal Exam: Normal Abdomen Description: Positive: Nontender. Negative: CVA Tenderness (R), CVA Tenderness (L) Bowel Sounds: Positive: Present Neurological Exam: Normal Psychological Exam: Normal Skin Exam: Normal Complaint Female Dx - Differential Dx/Diagnosis Differential Diagnosis/HQI/PQRI: Pelvic Inflammatory Disease, Renal Colic, Urinary Tract Infection Provider Diagnosis: Urgency of urination Discharge ED - Sign-Out/Discharge Documenting (check all that apply): Patient Departure All imaging exams completed and their final reports reviewed: No Studies - Discharge Plan Condition: Good Disposition: HOME Patient Education Materials: Urinary Urgency and Frequency (DC) Referrals: Aicha Macias NP [Primary Care Provider] - 2 Days (if no better) Additional Instructions: There is no evidence of a urinary tract infection on you urine test today Drink plenty of fluids and return if you develop a fever or chills - Billing Disposition and Condition Condition: GOOD Disposition: Home
== END 2019-09-18 13:01 | disposition home or self-care (01) ==
LOC: UCEAST 11:03
DX: R39.15 Urgency of urination (principal); R35.0 Frequency of micturition; F17.210 Nicotine dependence, cigarettes, uncomplicated
CPT/HCPCS: 81003; 84702; 99211; G0463

== ENCOUNTER 2019-10-16 16:02 | Emergency (ER) | payer OTHER ==
[2019-10-16 16:39] VITALS: BP 141/89
--- NOTE | 2019-10-16 17:39 | UC ---
Complaint Female HPI - HPI Summary HPI Summary: 29-year-old female presents with 2 day history of dysuria, frequency, and urgency. Associated with some mild suprapubic and low back pain. Patient took Azo this morning for her symptoms. States she is presently having her menses. Denies fever, chills, nausea, vomiting, vaginal discharge, or dyspareunia. - History Of Current Complaint Chief Complaint: UCGU Stated Complaint: POSS UTI Time Seen by Provider: 10/16/19 17:23 Hx Obtained From: Patient Hx Last Menstrual Period: now Pain Intensity: 6 - Allergies/Home Medications Allergies/Adverse Reactions: Allergies Allergy/AdvReac Type Severity Reaction Status Date / Time No Known Allergies Allergy Verified 10/16/19 16:40 PMH/Surg Hx/FS Hx/Imm Hx Previously Healthy: Yes Other History Of: Negative For: HIV, Hepatitis B, Hepatitis C, Anticoagulant Therapy - Surgical History Surgical History: Yes Surgery Procedure, Year, and Place: left wrist reset. tubes tied 2017 - Family History Known Family History: Positive: Non-Contributory - Social History Lives: Alone Alcohol Use: None Substance Use Type: None Substance Use Comment - Amount & Last Used: hx of heroin, not used in 5 years Smoking Status (MU): Light Every Day Tobacco Smoker Type: Cigarettes Amount Used/How Often: 1/2pack per day Have You Smoked in the Last Year: No Household Exposure Type: Cigarettes - Immunization History Most Recent Influenza Vaccination: unknown Most Recent Tetanus Shot: 06/01/15 Most Recent Pneumonia Vaccination: not indicated Review of Systems All Other Systems Reviewed And Are Negative: Yes Constitutional: Negative: Fever, Chills Respiratory: Positive: Negative Cardiovascular: Positive: Negative Gastrointestinal: Positive: Abdominal Pain. Negative: Vomiting, Nausea Genitourinary: Positive: Dysuria, Frequency, Urgency. Negative: Vaginal/Penile Discharge Musculoskeletal: Positive: Negative Neurological: Positive: Negative Is Patient Immunocompromised?: No Physical Exam - Summary Physical Exam Summary: GENERAL APPEARANCE: Well developed, well nourished, alert and cooperative, and appears to be in no acute distress. CARDIAC: Normal S1 and S2. No S3, S4 or murmurs. Rhythm is regular. There is no peripheral edema, cyanosis or pallor. Extremities are warm and well perfused. Capillary refill is less than 2 seconds. Peripheral pulses intact. LUNGS: Clear to auscultation without rales, rhonchi, wheezing or diminished breath sounds. ABDOMEN: Positive bowel sounds. Soft, nondistended, nontender. No guarding or rebound. No masses or hepatosplenomegally. No CVA tenderness. MUSKULOSKELETAL: ROM intact to all extremities. No joint erythema or tenderness. Normal muscular development. Normal gait. SKIN: Skin normal color, texture and turgor with no lesions or eruptions. Triage Information Reviewed: Yes Vital Signs: Initial Vital Signs Temp 98.7 F 10/16/19 16:36 Pulse 71 10/16/19 16:36 Resp 12 10/16/19 16:36 BP 141/89 10/16/19 16:36 Pulse Ox 100 10/16/19 16:36 Vital Signs Reviewed: Yes Complaint Female Dx - Course Course Of Treatment: 29-year-old female presents with 2 day history of dysuria, frequency, and urgency. Associated with some mild suprapubic and low back pain. Patient took Azo this morning for her symptoms. States she is presently having her menses. Denies fever, chills, nausea, vomiting, vaginal discharge, or dyspareunia. Afebrile. Hypertensive otherwise signs stable. Patient's exam was overall unremarkable. She was on Azo we were able to perform a urinalysis at this time however based on her symptoms will start treating her empirically for a urinary tract infection pending the results of urine culture with Bactrim DS 1 tablet twice daily 5 days and provide her with Pyridium 100 mg 3 times a day 2 days for the discomfort. She is to return here or follow up with her primary care provider in 3 days if symptoms are not improving. Anticipatory guidance warning symptoms reviewed with the patient. Verbalizes understanding and agrees with plan of care. - Differential Dx/Diagnosis Differential Diagnosis/HQI/PQRI: , Sexually Transmitted Disease, Urinary Tract Infection Provider Diagnosis: UTI (urinary tract infection) Discharge ED - Sign-Out/Discharge Documenting (check all that apply): Patient Departure All imaging exams completed and their final reports reviewed: No Studies - Discharge Plan Condition: Stable Disposition: HOME Prescriptions: Phenazopyridine TAB* [Pyridium 100 mg TAB*] 100 mg PO TID #6 tab Sulfamethox/Trimethoprim DS* [Bactrim DS 800/160 TAB*] 1 tab PO BID #8 tab Patient Education Materials: Urinary Tract Infection in Women (ED) Referrals: Aicha Macias NP [Primary Care Provider] - 3 Days (If no improvement.) Additional Instructions: Since you have taken Azo we were unable to perform a urinalysis on the urine sample however based on your symptoms we will start you on an antibiotic to treat for a likely infection. We will send the urine culture today to see if any bacteria grow out and make sure the antibiotic you were prescribed is appropriate to treat if this shows an infection. It may take 48-72 hours to get these results. We will contact you if there is any change in your treatment plan. Start Bactrim DS 1 tab twice a day for 5 days. Take pyridium 100 mg 1 tab every 8 hours for the next 2 days to help with the discomfort. This medication will turn your urine an orange color. Drink plenty of fluids. To help prevent urinary tract infections: 1) Be sure to wipe from front to back. 2) Urinate immediately after any sexual intercourse. 3) Avoid taking bubble baths. Follow up with your primary care provider in 3-5 days if symptoms persist. Seek immediate medical attention in the emergency room if you develop fever greater than 100.5 F, have severe abdominal pain, persistent vomiting, or any worsening of symptoms. - Billing Disposition and Condition Condition: STABLE Disposition: Home
[2019-10-16] MEDS ORDERED: Sulfamethox/Trimethoprim DS 800/160* TAB PO ONE (17:44)
[2019-10-16] MEDS ORDERED: Phenazopyridine TAB* 100 MG PO ONE (17:44)
== END 2019-10-16 18:03 | disposition home or self-care (01) ==
LOC: UCEAST 16:02
DX: N39.0 Urinary tract infection, site not specified (principal); R10.9 Unspecified abdominal pain; F17.210 Nicotine dependence, cigarettes, uncomplicated
CPT/HCPCS: 87077; 87086; 87186; 99213; A9270-GY; G0463